=== PATIENT | male | born 1955 | race African-American/Black ===

== ENCOUNTER 2024-05-18 16:21 | Inpatient (IN) | payer MEDICARE, MEDICAID ==
[~2024-05-18] VITALS: Ht 177.8 cm; Wt 115.2 kg
[2024-05-18 18:00] LABS: BASOPHILS % 0.9 % (0.0-2.0); EOSINOPHILS % 1.6 % (0.0-5.0); HEMATOCRIT. 43.1 % (42.0-52.0); HEMOGLOBIN. 13.5 g/dL (14.0-18.0); LYMPHOCYTES % 18.1 % (20.0-50.0); MEAN CORPUSCULAR HEMOGLOBIN 28.9 pg (28.0-32.0); MEAN CORPUSCULAR HGB CONC 31.4 g/dL (31.0-37.0); MEAN CORPUSCULAR VOLUME 92.1 fL (80.0-94.0); MEAN PLATELET VOLUME 8.9 fl (7.4-10.4); MONOCYTES % 8.5 % (2.0-8.0); NEUTROPHILS % 70.9 % (40.0-76.0); PLATELET 189 x1000/uL (130-400); RED BLOOD CELL COUNT 4.68 mill/uL (4.7-6.1); RED CELL DISTRIBUTION WIDTH 15.4 % (11.6-14.6); WHITE BLOOD COUNT 7.9 x1000/uL (4.5-11.0)
[2024-05-18 18:01] LABS: CHLORIDE 106 mEq/L (98-107); POTASSIUM 4.6 mEq/L (3.5-5.1); SODIUM 140 mEq/L (136-145)
[2024-05-18 18:02] LABS: CARBON DIOXIDE 30 mEq/L (21-32)
[2024-05-18 18:03] LABS: CALCIUM 9.7 mg/dL (8.7-10.4)
[2024-05-18 18:07] LABS: CREATININE 0.7 mg/dL (0.6-1.3); GLUCOSE 100 mg/dL (70-105); UREA NITROGEN BLOOD 12 mg/dL (9-23)
[2024-05-18] MEDS ORDERED: CLONIDINE 0.1MG TABLET PO PRN (19:45)
[2024-05-18] MEDS ORDERED: MAGNESIUM/ALUMINUM HYDROXIDE/SIMETHICONE 30ML UDC PO PRN (19:45)
[2024-05-18] MEDS: ENOXAPARIN 40MG/0.4ML SYR SUBCUT SCH (21:03)
[2024-05-18] MEDS: ACETAMINOPHEN 325MG TABLET PO PRN (21:10)
[2024-05-18 21:39] LABS: TRIGLYCERIDE 84 mg/dL (0-150)
[2024-05-18 21:40] LABS: ETHANOL BLOOD < 10 mg/dL (<10); LDL CHOLESTEROL 78 mg/dL (5-100)
[2024-05-18 21:41] LABS: CHOLESTEROL 139 mg/dL (<200); HDL CHOLESTEROL 47 mg/dL (>55)
[2024-05-18 21:57] LABS: HEPATITIS B SURFACE ANTIGEN NEGATIVE (Negative)
[2024-05-18 22:18] LABS: HEPATITIS A AB IGM NEGATIVE (Negative); HEPATITIS B CORE AB IGM NEGATIVE (Negative)
[2024-05-18 22:19] LABS: HEPATITIS C AB REACTIVE (Pos) (Negative)
[2024-05-18] MEDS ORDERED: DEXTROSE 50% WATER 50ML SYRINGE IV PRN (23:00)
[2024-05-18 23:17] LABS: FOLIC ACID (FOLATE) SERUM 11.41 ng/mL (>5.38)
[2024-05-18 23:18] LABS: VITAMIN B12 SERUM 571 pg/mL (211-911)
[2024-05-19] MEDS: BLOOD SUGAR DIAGNOSTIC STRIP TEST SCH (06:45)
[2024-05-19] MEDS: INSULIN LISPRO 100 UNITS/ML SUBCUT SCH (07:15)
[2024-05-19] MEDS: AMLODIPINE 5MG TABLET PO SCH (09:00)
[2024-05-19] MEDS: PANTOPRAZOLE 40MG DR TABLET PO SCH (11:01)
[2024-05-19 12:00] VITALS: PULSE 70; RESP 18; TEMP 36.8; O2SAT 95
[2024-05-19 16:00] VITALS: PULSE 80; RESP 18; TEMP 36.8; O2SAT 98
[2024-05-19] MEDS ORDERED: *PATIENT'S OWN MEDICATION STORAGE XX SCH (19:45)
[2024-05-19 20:00] VITALS: BP 135/81; PULSE 88; RESP 17; TEMP 36.4; O2SAT 97
[2024-05-19 20:03] VITALS: BP 135/81; PULSE 88; RESP 17; TEMP 36.4
[2024-05-19] MEDS: DOCUSATE SODIUM 100MG CAPSULE PO PRN (20:44)
[2024-05-19] MEDS: PNEUMOCOCCAL 20-VAL CONJ-DIP CRM 0.5ML IM ONE (21:00)
[2024-05-19] MEDS ORDERED: INFLUENZA VACCINE 05/PF 0.5 ML SYRINGE IM ONE (21:00)
[2024-05-20] VITALS: BP 146/69; PULSE 103; RESP 18; TEMP 36.4; O2SAT 96
[2024-05-20 04:00] VITALS: BP 133/94; PULSE 103; RESP 18; TEMP 36.2; O2SAT 95
[2024-05-20 08:00] VITALS: BP_SYST 121; BP_SYST 138; BP_DIAS 80; BP_DIAS 85; PULSE 100; PULSE 96; RESP 18; TEMP 36.3; TEMP 36.7; O2SAT 96; O2SAT 97
[2024-05-20 12:00] VITALS: BP 149/80; PULSE 89; RESP 18; TEMP 36.6; O2SAT 97
[2024-05-20 16:00] VITALS: BP 147/90; PULSE 90; RESP 18; O2SAT 99
[2024-05-21] VITALS: BP 128/82; PULSE 82; RESP 17; TEMP 36.3; O2SAT 99
[2024-05-21 04:00] VITALS: BP 141/75; PULSE 79; RESP 16; TEMP 36.1; O2SAT 99
[2024-05-21 07:07] LABS: CARBON DIOXIDE 27 mEq/L (21-32); CHLORIDE 107 mEq/L (98-107); POTASSIUM 4.1 mEq/L (3.5-5.1); SODIUM 139 mEq/L (136-145)
[2024-05-21 07:08] LABS: CALCIUM 9.6 mg/dL (8.7-10.4); HEMATOCRIT 42.5 % (42.0-52.0); HEMOGLOBIN 13.5 g/dL (14.0-18.0); MEAN CORPUSCULAR HEMOGLOBIN 29.3 pg (28.0-32.0); MEAN CORPUSCULAR HGB CONC 31.6 g/dL (31.0-37.0); MEAN CORPUSCULAR VOLUME 92.6 fL (80.0-94.0); RED BLOOD CELL COUNT 4.59 mill/uL (4.7-6.1); RED CELL DISTRIBUTION WIDTH 15.1 % (11.6-14.6)
[2024-05-21 07:13] LABS: CREATININE 0.7 mg/dL (0.6-1.3); GLUCOSE 98 mg/dL (70-105); UREA NITROGEN BLOOD 15 mg/dL (9-23)
[2024-05-21 08:00] VITALS: BP 127/94; PULSE 87; RESP 17; TEMP 36.7; O2SAT 95
[2024-05-21 09:51] LABS: PLATELET 138 x1000/uL (130-400)
[2024-05-21 12:00] VITALS: BP 121/76; PULSE 82; RESP 18; TEMP 36.4; O2SAT 97
[2024-05-21] MEDS: DOCUSATE SODIUM 100MG CAPSULE PO SCH (14:59)
[2024-05-21 16:00] VITALS: BP 130/75; PULSE 79; RESP 20; TEMP 36.4; O2SAT 97
[2024-05-21 20:00] VITALS: BP 141/72; PULSE 80; RESP 18; TEMP 36.8; O2SAT 93
[2024-05-21] MEDS: TRAMADOL 50MG TABLET PO PRN (22:38)
[2024-05-22] VITALS (9 sets, daily range): BP systolic 110–135; BP diastolic 61–81; PULSE 68–85; RESP 16–20; TEMP 36.5–36.9; O2SAT 93–99
[2024-05-22 08:07] LABS: HEMATOCRIT 43.4 % (42.0-52.0); HEMOGLOBIN 13.9 g/dL (14.0-18.0); MEAN CORPUSCULAR HEMOGLOBIN 29.3 pg (28.0-32.0); MEAN CORPUSCULAR HGB CONC 31.9 g/dL (31.0-37.0); PLATELET 174 x1000/uL (130-400); RED BLOOD CELL COUNT 4.72 mill/uL (4.7-6.1); RED CELL DISTRIBUTION WIDTH 15.2 % (11.6-14.6); WHITE BLOOD COUNT 6.9 x1000/uL (4.5-11.0)
[2024-05-22 08:58] LABS: FERRITIN 41 ng/mL (22-322)
[2024-05-22 09:00] LABS: FOLIC ACID (FOLATE) SERUM 14.81 ng/mL (>5.38); VITAMIN B12 SERUM 386 pg/mL (211-911)
[2024-05-22 09:16] LABS: CHLORIDE 104 mEq/L (98-107); POTASSIUM 4.7 mEq/L (3.5-5.1); SODIUM 138 mEq/L (136-145)
[2024-05-22 09:17] LABS: CARBON DIOXIDE 26 mEq/L (21-32)
[2024-05-22 09:18] LABS: CALCIUM 9.9 mg/dL (8.7-10.4)
[2024-05-22 09:22] LABS: CREATININE 0.7 mg/dL (0.6-1.3); GLUCOSE 105 mg/dL (70-105); IRON 63 ug/dL (65-175)
[2024-05-22 09:23] LABS: UREA NITROGEN BLOOD 13 mg/dL (9-23)
[2024-05-22 09:24] LABS: ALANINE AMINOTRANSFERASE 12 IU/L (10-49); ALBUMIN 3.9 g/dL (3.2-4.8); ASPARTATE AMINOTRANSFERASE 23 IU/L (<34)
[2024-05-22 09:25] LABS: BILIRUBIN DIRECT 0.2 mg/dL (<=3.0); BILIRUBIN TOTAL 0.6 mg/dL (0.1-1.0); PROTEIN TOTAL 7.2 g/dL (6.0-8.3); TOTAL IRON BINDING CAPACITY 166 ug/dl (250-425)
[2024-05-22] MEDS: IPRATROPIUM/ALBUTEROL 0.5-3(2.5)MG/3ML NEB HHN PRN (09:28)
[2024-05-22] MEDS ORDERED: NALOXONE HCL 0.4MG/ML VIAL IV PRN (11:45)
[2024-05-22] MEDS: POLYETHYLENE GLYCOL 3350 (17GM) 1 DOSE PACK PO PRN (12:11)
[2024-05-22] MEDS: ACETAMINOPHEN WITH CODEINE 300/30MG TABLET PO PRN (12:13)
[2024-05-22] MEDS: IPRATROPIUM/ALBUTEROL 0.5-3(2.5)MG/3ML NEB HHN SCH (14:22)
[2024-05-22] MEDS: ACETAMINOPHEN 325MG TABLET PO PRN (21:44)
[2024-05-23] VITALS (11 sets, daily range): BP systolic 120–156; BP diastolic 59–86; PULSE 70–91; RESP 18–20; TEMP 36.4–36.8; O2SAT 91–100
[2024-05-24] VITALS (10 sets, daily range): BP systolic 108–132; BP diastolic 69–81; PULSE 69–95; RESP 14–20; TEMP 36.2–36.7; O2SAT 93–99
[2024-05-24] MEDS: FERROUS SULFATE 325MG TABLET PO SCH (09:30)
[2024-05-24 18:21] LABS: HEMATOCRIT 43.1 % (42.0-52.0); HEMOGLOBIN 13.6 g/dL (14.0-18.0); MEAN CORPUSCULAR HEMOGLOBIN 28.8 pg (28.0-32.0); MEAN CORPUSCULAR HGB CONC 31.5 g/dL (31.0-37.0); MEAN CORPUSCULAR VOLUME 91.4 fL (80.0-94.0); PLATELET 165 x1000/uL (130-400); RED BLOOD CELL COUNT 4.72 mill/uL (4.7-6.1); RED CELL DISTRIBUTION WIDTH 15.8 % (11.6-14.6); WHITE BLOOD COUNT 5.6 x1000/uL (4.5-11.0)
[2024-05-24 18:31] LABS: CHLORIDE 103 mEq/L (98-107); POTASSIUM 4.7 mEq/L (3.5-5.1); SODIUM 139 mEq/L (136-145)
[2024-05-24 18:32] LABS: CALCIUM 9.6 mg/dL (8.7-10.4); CARBON DIOXIDE 31 mEq/L (21-32)
[2024-05-24 18:37] LABS: CREATININE 0.8 mg/dL (0.6-1.3); GLUCOSE 100 mg/dL (70-105); UREA NITROGEN BLOOD 17 mg/dL (9-23)
[2024-05-25] VITALS (10 sets, daily range): BP systolic 112–129; BP diastolic 64–82; PULSE 68–88; RESP 16–20; TEMP 36.4–37; O2SAT 91–100
[2024-05-26] VITALS (8 sets, daily range): BP systolic 112–141; BP diastolic 70–80; PULSE 72–81; RESP 15–21; TEMP 36.4–36.9; O2SAT 96–99
[2024-05-26 21:55] LABS: HEMATOCRIT 39.9 % (42.0-52.0); HEMOGLOBIN 12.9 g/dL (14.0-18.0); MEAN CORPUSCULAR HEMOGLOBIN 29.9 pg (28.0-32.0); MEAN CORPUSCULAR HGB CONC 32.4 g/dL (31.0-37.0); MEAN CORPUSCULAR VOLUME 92.5 fL (80.0-94.0); PLATELET 160 x1000/uL (130-400); RED BLOOD CELL COUNT 4.32 mill/uL (4.7-6.1); WHITE BLOOD COUNT 5.8 x1000/uL (4.5-11.0)
[2024-05-26 22:27] LABS: CHLORIDE 105 mEq/L (98-107); POTASSIUM 4.7 mEq/L (3.5-5.1); SODIUM 138 mEq/L (136-145)
[2024-05-26 22:28] LABS: CALCIUM 9.2 mg/dL (8.7-10.4); CARBON DIOXIDE 30 mEq/L (21-32)
[2024-05-26 22:33] LABS: CREATININE 0.7 mg/dL (0.6-1.3); GLUCOSE 122 mg/dL (70-105); UREA NITROGEN BLOOD 13 mg/dL (9-23)
[2024-05-27] VITALS (8 sets, daily range): BP systolic 119–142; BP diastolic 70–78; PULSE 73–98; RESP 18–20; TEMP 36.3–37.3; O2SAT 94–100
[2024-05-27] MEDS ORDERED: NALOXONE HCL 0.4MG/ML VIAL IV PRN (14:00)
[2024-05-27] MEDS: ACETAMINOPHEN WITH CODEINE 300/30MG TABLET PO PRN (15:26)
[2024-05-28] VITALS (7 sets, daily range): BP systolic 109–134; BP diastolic 60–82; PULSE 77–109; RESP 18–20; TEMP 36.5–37.2; O2SAT 1–100
[2024-05-28] MEDS ORDERED: IPRATROPIUM/ALBUTEROL 0.5-3(2.5)MG/3ML NEB HHN PRN (05:45)
[2024-05-28] MEDS: GUAIFENESIN 200MG/10ML SUGAR FREE UDC PO PRN (06:17)
[2024-05-29 00:10] VITALS: BP 120/68; PULSE 84; RESP 16; TEMP 37.2; O2SAT 92
[2024-05-29 04:00] VITALS: BP 118/74; PULSE 76; RESP 17; TEMP 36.8; O2SAT 94
[2024-05-29 08:00] VITALS: BP 115/81; PULSE 80; RESP 18; TEMP 36.7; O2SAT 94
[2024-05-29 12:00] VITALS: BP 123/60; PULSE 74; RESP 18; TEMP 36.7; O2SAT 94
[2024-05-29 16:00] VITALS: BP 135/70; PULSE 80; RESP 18; TEMP 36.6; O2SAT 98
[2024-05-29 20:00] VITALS: BP 122/75; PULSE 82; RESP 19; TEMP 36.6; O2SAT 95
[2024-05-30] VITALS: BP 120/64; PULSE 70; RESP 17; TEMP 36.4
[2024-05-30 04:00] VITALS: BP 123/79; PULSE 87; RESP 18; TEMP 35.4; O2SAT 94
[2024-05-30 08:00] VITALS: BP 126/66; PULSE 81; RESP 20; TEMP 36.4; O2SAT 100
[2024-05-30 12:00] VITALS: BP 121/73; PULSE 82; RESP 18; TEMP 36.6; O2SAT 96
[2024-05-30 12:38] LABS: BG BASE EXCESS 1.5 mmol/L (-2.0-3.0); BG CARBOXYHEMOGLOBIN 1.3 % (0.5-1.5); BG FRACTION INSPIRED OXYGEN 21; BG HCO3 ACT 26.2 mmol/L (21.0-28.0); BG METHEMOGLOBIN 0.3 % (0.5-1.5); BG OXYGEN SATURATION 94.9 % (94.0-98.0); BG OXYHEMOGLOBIN 93.4 % (94.0-98.0); BG PCO2 41.6 mmHg (35.0-48.0); BG PH 7.417 (7.350-7.450); BG PO2 73.6 mmHg (83.0-108.0); BG SAMPLE SITE RIGHT RADIAL; BG TOTAL HEMOGLOBIN 14.3 g/dL (13.5-17.5); BG VENT MODE ROOM AIR
[2024-05-30 16:00] VITALS: BP 111/58; PULSE 72; RESP 18; TEMP 36.6; O2SAT 97
[2024-05-30 20:00] VITALS: BP 119/62; PULSE 84; RESP 18; TEMP 36.5; O2SAT 99
[2024-05-30] MEDS: ONDANSETRON HCL 4MG/2ML INJ IV PRN (21:00)
[2024-05-31] VITALS: BP 115/79; PULSE 100; RESP 18; TEMP 36.4; O2SAT 92
[2024-05-31 04:00] VITALS: BP 116/76; PULSE 98; RESP 18; TEMP 36.3
[2024-05-31 08:00] VITALS: BP_SYST 122; BP_SYST 145; BP_DIAS 66; BP_DIAS 72; PULSE 65; PULSE 84; RESP 18; TEMP 35.8; O2SAT 95
[2024-05-31 12:00] VITALS: BP 118/70; PULSE 73; RESP 19; TEMP 36.2; O2SAT 95
[2024-05-31] MEDS ORDERED: FERR-63 PO (15:31)
[2024-05-31] MEDS ORDERED: POLY17PO43 PO (15:31)
[2024-05-31] MEDS ORDERED: PANT40TA51 PO (15:31)
[2024-05-31] MEDS ORDERED: AMLO5TAB88 PO (15:31)
[2024-05-31 16:00] VITALS: BP 123/77; PULSE 79; RESP 18; TEMP 36.6; O2SAT 95
[2024-05-31 16:44] VITALS: BP 77/95; PULSE 123; TEMP 97.9
== END 2024-05-31 17:15 | disposition home or self-care (01) | DRG 388 ==
LOC: EDBD 16:29 → ER 16:29 → EDBEDREQTM 19:12 → EDBEDREQ 19:12 → 5WST 23:55 → 7EST 05-19 23:40
PROVIDERS: ADMIT Hospitalist; ATTEND Hospitalist
DX: K56.41 Fecal impaction (principal); G82.50 Quadriplegia, unspecified; Z59.00 Homelessness unspecified; R62.7 Adult failure to thrive; R53.1 Weakness; M79.10 Myalgia, unspecified site; D64.9 Anemia, unspecified; E78.5 Hyperlipidemia, unspecified; E66.9 Obesity, unspecified; J44.9 Chronic obstructive pulmonary disease, unspecified; E78.00 Pure hypercholesterolemia, unspecified; I10 Essential (primary) hypertension; S31.000A Unspecified open wound of lower back and pelvis without penetration into retroperitoneum, initial encounter; F17.210 Nicotine dependence, cigarettes, uncomplicated; Z74.01 Bed confinement status; I25.2 Old myocardial infarction; Z79.899 Other long term (current) drug therapy; Z68.36 Body mass index [BMI] 36.0-36.9, adult; X58.XXXA Exposure to other specified factors, initial encounter; Y93.89 Activity, other specified; Y92.89 Other specified places as the place of occurrence of the external cause; Y99.8 Other external cause status
CPT/HCPCS: 36415; 36600; 71045; 74018; 80048; 80053; 80061; 80076; 80320; 82375; 82607; 82728; 82746; 82805; 82962; 83036; 83540; 83550; 83735; 85025; 85027; 85044; 86705; 86709; 87340; 93970; 93971; 94070; 94640; 94664; 94760; 97162; 97166; 97530; 98960; 99285; A4606; J1650; J2405; G0480